=== PATIENT | male | born 1955 | race Caucasian/White ===

== ENCOUNTER 2017-09-07 09:52 | Day surgery (SDC) | payer BC ==
[~2017-09-07] VITALS: Ht 183 cm; Wt 96.8 kg
[2017-09-07] VITALS (9 sets, daily range): BP systolic 106–124; BP diastolic 68–92; PULSE 53–89; TEMP 97.7
[2017-09-07] MEDS ORDERED: HYZAAR 50-12.1 UDTAB PO (10:25)
[2017-09-07 10:26] LABS: HEMATOCRIT 40.4 % (42.0-52.0); HEMOGLOBIN 13.3 g/dl (13.5-18.0); MEAN CELL VOLUME 87 fl (80.0-100.0); MEAN CORPUSCULAR HEMOGLOBIN 29 pg (27.0-31.0); MEAN CORPUSCULAR HGB CONC 33 g/dl (33.0-37.0); MEAN PLATELET VOLUME 9.8 fl (7.4-10.4); PLATELET COUNT 217 K/mm3 (130-400); RED BLOOD COUNT 4.65 M/mm3 (4.20-5.60); REDCELL DISTRIBUTION WIDTH-CV 13.2 % (11.5-14.5)
[2017-09-07] MEDS ORDERED: TOPROL XL 25MG25 MG PO (10:26)
[2017-09-07] MEDS ORDERED: ASPIRIN E.C. 8181 MG PO (10:26)
[2017-09-07] MEDS ORDERED: MAG-OX 400400 MG/TAB PO (10:27)
[2017-09-07] MEDS ORDERED: MULTI VITAMINS1 TAB PO (10:27)
[2017-09-07 10:33] LABS: PROTHROMBIN TIME 12.1 SECONDS (9.7-12.8)
[2017-09-07 10:37] LABS: CALCIUM 8.9 mg/dL (8.4-10.2); CREATININE, serum 0.93 mg/dL (0.66-1.25); POTASSIUM 3.8 mmol/L (3.4-5.0)
[2017-09-07] MEDS ORDERED: LIPITOR 10MG10 MG PO (12:30)
[2017-09-07] MEDS ORDERED: HYZAAR 12.5 MG-1 TAB PO (12:32)
== END 2017-09-07 15:29 | disposition home or self-care (01) ==
LOC: COL.CAR 09:52
PROVIDERS: Internal Medicine Cardiovascular Disease
DX: I25.110 Atherosclerotic heart disease of native coronary artery with unstable angina pectoris (principal); R94.39 Abnormal result of other cardiovascular function study; I10 Essential (primary) hypertension; I47.1 Supraventricular tachycardia; Z79.82 Long term (current) use of aspirin
CPT/HCPCS: J1644; J2405; Q9967